=== PATIENT | male | born 1945 | race Two or more races ===

== ENCOUNTER 2025-03-20 07:16 | Outpatient (CLI) | payer MEDICARE, MEDICAID ==
--- NOTE | 2025-03-20 11:21 | DVH ---
CLINICAL INFORMATION: 79 years old, Male; PRESENCE OF ARTIFICIAL KNEE JOINT. TECHNIQUE: Following the intravenous administration of 24.5 mCi technetium 99m- MDP, 3-phase bone scan was performed. Immediate flow images of the bilateral knees were obtained in the anterior and posterior projections. Blood pool images were obtained in the anterior, posterior and both lateral projections. 3 hour delayed images were obtained in the anterior, posterior, and both lateral projections. COMPARISON: None FINDINGS: Immediate flow images demonstrate symmetric activity in both lower extremities with no focal area of increased activity demonstrated. Blood pool images demonstrate photopenic defects associated with both knee prostheses with no abnormal asymmetric activity demonstrated. Delayed images demonstrate nonspecific increased uptake adjacent to both prostheses. IMPRESSION: 1. Nonspecific increased uptake adjacent to the bilateral knee prostheses, fairly symmetric bilaterally. Findings are nonspecific and may be seen normally, particularly in the 1st few years after arthroplasty. Correlate with clinical findings. 2. No asymmetric activity is seen in the immediate flow or blood pool phases.
== END 2025-03-20 17:00 | disposition home or self-care (01) ==
LOC: XYW 07:16
PROVIDERS: ATTEND Physician Assistant
DX: Z96.653 Presence of artificial knee joint, bilateral (principal)
CPT/HCPCS: 78315; A9503